=== PATIENT | male | born 1985 ===

== ENCOUNTER 2023-12-31 05:06 | Day surgery (SDC) | payer OTHER ==
[2023-12-28 11:50] LABS: HEMATOCRIT 46.8 % (39.0-48.0); HEMOGLOBIN 16.3 g/dL (13-16.00); MEAN CELL VOLUME 89.2 fL (80.0-100.00); MEAN CORPUSCULAR HEMOGLOBIN 31.2 pg (27.00-32.0); PLATELET COUNT 278 K/uL (150-450); RED BLOOD COUNT 5.24 M/uL (4.00-6.00); RED CELL DISTRIBUTION WIDTH 13.7 % (11.5-14.5)
[2023-12-28 11:56] LABS: URINE APPEARANCE Clear; URINE BILIRRUBIN Negative (NEGATIVE); URINE BLOOD Negative; URINE COLOR Yellow; URINE GLUCOSE Negative (NEGATIVE); URINE KETONE Negative (NEGATIVE); URINE LEUKOCYTE Negative; URINE NITRATE Negative; URINE PROTEIN Trace (NEGATIVE)
[2023-12-28 12:00] VITALS: BP 149/89
[2023-12-28 12:01] LABS: URINE RBC 2.5 uL (0.0-20.8); URINE WBC 1.8 uL (0.0-23.2)
[2023-12-28 12:03] LABS: URINE BACTERIA 3.7 uL (0.0-1933); URINE EPITHELIAL CELLS 0.9 uL (0.0-38.8)
[2023-12-28 12:19] LABS: INR 1.05; PARTIAL THROMBOPLASTIN TIME 30.8 SECONDS (22.0-34.0); PROTHROMBIN TIME 11.4 SECONDS (9.0-11.5)
[2023-12-28 12:32] LABS: ALBUMIN 3.9 gm/dL (3.4-5.0); BILIRUBIN TOTAL 0.67 mg/dL (0.3-1.2); CALCIUM 9.3 mg/dL (8.5-10.1); CREATININE SERUM 0.8 mg/dL (0.70-1.30); GFR 107.06; GLOBULINA 3.7 G/DL (2.4-3.5); POTASSIUM 4.1 mEq/L (3.5-5.1); TOTAL PROTEIN 7.6 gm/dL (6.4-8.2)
[~2023-12-31] VITALS: Ht 177.8 cm; Wt 115.7 kg
[~2023-12-31 05:06] MED LIST: AVASTIN25 MG/1 ML; CARDEZARTAN; SYMTUZA 800-151 EACH
[2023-12-31] MEDS ORDERED: TAMSULOSIN HCL 0.4 MG CAP PO ONE (12:15)
[2023-12-31] MEDS ORDERED: OXYCODONE HCL5 MG PO (12:24)
[2023-12-31] MEDS ORDERED: CEFTRIAXONE SODIUM 2,000 MG VIAL IV ONE (16:15)
[2023-12-31] MEDS ORDERED: METRONIDAZOLE/SODIUM CHLORIDE 500 MG/100 ML PIGGYBACK IV ONE (16:15)
[2023-12-31] MEDS ORDERED: DIBUCAINE 30 GM TUBE RECTAL ONE (16:30)
[2023-12-31] MEDS ORDERED: HEMOSTATIC MATRIX 1 KIT KIT TOP ONE (16:30)
[2023-12-31] MEDS ORDERED: POVIDONE-IODINE 118 ML BOTT TOP ONE (16:30)
[2023-12-31] MEDS ORDERED: LIDOCAINE HCL 1%/EPINEPHRINE 20ML VIAL IJ ONE (16:30)
[2023-12-31] MEDS ORDERED: BUPIVACAINE HCL/PF 0.25% 30ML VIAL InF ONE (16:30)
== END 2023-12-31 17:40 | disposition home or self-care (01) ==
LOC: CIR.AMB 05:06
PROVIDERS: ATTEND Surgery
DX: K60.30 Anal fistula, unspecified (principal); D37.8 Neoplasm of uncertain behavior of other specified digestive organs